=== PATIENT | male | born 1970 | race Caucasian/White ===

== ENCOUNTER 2022-03-02 13:58 | Emergency (ER) | payer OTHER ==
[~2022-03-02] VITALS: Ht 172.7 cm; Wt 80.5 kg
[2022-03-02 14:00] VITALS: BP 138/89
== END 2022-03-02 14:47 | disposition home or self-care (01) ==
LOC: EMS 13:58
DX: F41.9 Anxiety disorder, unspecified (principal)
CPT/HCPCS: 99281; Z7502